=== PATIENT | male | born 1975 | race African-American/Black ===

== ENCOUNTER 2023-01-07 14:20 | Emergency (ER) | payer OTHER ==
[2023-01-07 14:36] VITALS: BP 165/89; PULSE 61; RESP 18; TEMP 98.3
--- NOTE | 2023-01-07 16:02 | ED ---
General Adult HPI - General Chief complaint: Weakness Stated complaint: weakness, numbness Source: patient Mode of arrival: ambulatory Limitations: no limitations - History of Present Illness Initial comments: 47-year-old male with no past medical history presented to the ED with a chief complaint of fatigue. Patient states when he woke up this morning he felt "drained". States since waking this morning he reports that this feeling has persisted. Additionally, notes that he has had some numbness in his left hand for the past week. 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 Denies headache, weakness, chest pain, palpitations, shortness of breath. No other complaints. - Related Data Allergies Allergy/AdvReac Type Severity Reaction Status Date / Time No Known Allergies Allergy Verified 01/07/23 14:37 Review of Systems ROS Statement: Those systems with pertinent positive or pertinent negative responses have been documented in the HPI. ROS Other: All systems not noted in ROS Statement are negative. Past Medical History Past Medical History: No Reported History History of Any Multi-Drug Resistant Organisms: None Reported Past Surgical History: Back Surgery Past Psychological History: No Psychological Hx Reported Smoking Status: Current every day smoker Past Alcohol Use History: Occasional Past Drug Use History: None Reported General Exam Limitations: no limitations General appearance: alert, in no apparent distress Head exam: Present: atraumatic, normocephalic Eye exam: Present: normal appearance, PERRL, EOMI ENT exam: Present: normal exam, mucous membranes moist, other (Midline, uvula midline.) Neck exam: Present: normal inspection Respiratory exam: Present: normal lung sounds bilaterally Cardiovascular Exam: Present: regular rate, normal rhythm GI/Abdominal exam: Present: soft (Tenderness to palpation. No rebound guarding or rigidity.) Extremities exam: Present: normal inspection, other (Strength and sensation 5 out of 5 in bilateral upper and lower extremities) Back exam: Present: normal inspection Neurological exam: Present: alert, oriented X3, CN II-XII intact (Finger nose, rapid alternating hand movements, [id number] intact.) Skin exam: Present: warm, dry Course Vital Signs 01/07/23 14:31 Temperature 98.3 F Pulse Rate 61 Respiratory 18 Rate Blood Pressure 165/89 O2 Sat by Pulse 98 Oximetry Medical Decision Making - Medical Decision Making Was pt. sent in by a medical professional or institution (Dr., PA, SENIOR MECHANICAL ENGINEER, urgent care, hospital, or care home...) When possible be specific @ -No Did you speak to anyone other than the patient for history (EMS, parent, family, police, friend...)? What history was obtained from this source @ -No Did you review nursing and triage notes (agree or disagree)? Why? @ -I reviewed and agree with nursing and triage notes Were old charts reviewed (outside hosp., previous admission, EMS record, old EKG, old radiological studies, urgent care reports/EKG's, care home records)? Report findings @ -No old charts were reviewed Differential Diagnosis (chest pain, altered mental status, abdominal pain women, abdominal pain men, vaginal bleeding, weakness, fever, dyspnea, syncope, headache, dizziness, GI bleed, back pain, seizure, CVA, palpatations, mental health, musculoskeletal)? @ -Differential Weakness: Hypoglycemia, shock, sepsis, hyponatremia, anemia, infection, NJ, ETOH, adverse medicine reaction, overdose, stroke, this is not meant to be an all-inclusive list. EKG interpreted by me (3pts min.). @ -As above X-rays interpreted by me (1pt min.). @ -None done CT interpreted by me (1pt min.). @ -None done U/S interpreted by me (1pt. min.). @ -None done What testing was considered but not performed or refused? (CT, X-rays, U/S, labs)? Why? @ -None What meds were considered but not given or refused? Why? @ -None Did you discuss the management of the patient with other professionals (professionals i.e. OLIVIA Olivas, SENIOR MECHANICAL ENGINEER, lab, RT, psych nurse, geriatric social work professor, cake washer, teacher, home lending officer, case packer and sealer)? Give summary @ -No Was smoking cessation discussed for >3mins.? @ -No Was critical care preformed (if so, how long)? @ -No Were there social determinants of health that impacted care today? How? (Homelessness, low income, unemployed, alcoholism, drug addiction, transportation, low edu. Level, literacy, decrease access to med. care, prison, rehab)? @ -No Was there de-escalation of care discussed even if they declined (Discuss DNR or withdrawal of care, Hospice)? DNR status @ -No What co-morbidities impacted this encounter? (DM, HTN, Smoking, COPD, CAD, Cancer, CVA, ARF, Chemo, Hep., AIDS, mental health diagnosis, sleep apnea, morbid obesity)? @ -None Was patient admitted / discharged? Hospital course, mention meds given and route, prescriptions, significant lab abnormalities, going to OR and other pertinent info. @ -Discharge. Labs significant for a WBC of 3.2. And transaminitis with AST at 219 ALT 212 was unremarkable. EKG showed a normal sinus rhythm without acute ST or T-wave changes. Findings likely consistent with early viral infection. Patient discharged home in stable condition. Undiagnosed new problem with uncertain prognosis? @ -No Drug Therapy requiring intensive monitoring for toxicity (Heparin, Nitro, Insulin, Cardizem)? @ -No Were any procedures done? @ -No Diagnosis/symptom? @ -Fatigue, likely viral Acute, or Chronic, or Acute on Chronic? @ -Acute Uncomplicated (without systemic symptoms) or Complicated (systemic symptoms)? @ -Uncomplicated Side effects of treatment? @ -No Exacerbation, Progression, or Severe Exacerbation? @ -No Poses a threat to life or bodily function? How? (Chest pain, USA, NJ, pneumonia, PE, COPD, DKA, ARF, appy, cholecystitis, CVA, Diverticulitis, Homicidal, Suicidal, threat to staff... and all critical care pts) @ -No - Lab Data Result diagrams: 01/07/23 16:05 01/07/23 16:05 Lab Results 01/07/23 01/07/23 01/07/23 Range/Units 16:05 16:05 16:05 WBC 3.2 L (3.8-10.6) k/uL RBC 4.66 (4.30-5.90) m/uL Hgb 15.2 (13.0-17.5) gm/dL Hct 44.3 (39.0-53.0) % MCV 95.0 (80.0-100.0) fL MCH 32.7 (25.0-35.0) pg MCHC 34.4 (31.0-37.0) g/dL RDW 13.3 (11.5-15.5) % Plt Count 94 L (150-450) k/uL MPV 7.5 Neutrophils % 78 % Lymphocytes % 11 % Monocytes % 7 % Eosinophils % 3 % Basophils % 0 % Neutrophils # 2.5 (1.3-7.7) k/uL Lymphocytes # 0.4 L (1.0-4.8) k/uL Monocytes # 0.2 (0-1.0) k/uL Eosinophils # 0.1 (0-0.7) k/uL Basophils # 0.0 (0-0.2) k/uL Manual Slide Review Performed RBC Morphology Normal Sodium 139 (137-145) mmol/L Potassium 4.3 (3.5-5.1) mmol/L Chloride 99 (98-107) mmol/L Carbon Dioxide 23 (22-30) mmol/L Anion Gap 17 mmol/L BUN 9 (9-20) mg/dL Creatinine 0.73 (0.66-1.25) mg/dL Est GFR (CKD-EPI)AfAm >90 (>60 ml/min/1.73 sqM) Est GFR (CKD-EPI)NonAf >90 (>60 ml/min/1.73 sqM) Glucose 80 (74-99) mg/dL Calcium 9.6 (8.4-10.2) mg/dL Magnesium 1.9 (1.6-2.3) mg/dL Total Bilirubin 1.2 (0.2-1.3) mg/dL AST 219 H (17-59) U/L ALT 212 H (4-49) U/L Alkaline Phosphatase 81 (38-126) U/L Total Protein 8.9 H (6.3-8.2) g/dL Albumin 5.2 H (3.5-5.0) g/dL Urine Color Yellow Urine Appearance Clear (Clear) Urine pH 6.0 (5.0-8.0) Ur Specific [place] 1.023 (1.001-1.035) Urine Protein 1+ H (Negative) Urine Glucose (UA) Negative (Negative) Urine Ketones 1+ H (Negative) Urine Blood Trace H (Negative) Urine Nitrite Negative (Negative) Urine Bilirubin Negative (Negative) Urine Urobilinogen 6.0 (<2.0) mg/dL Ur Leukocyte Esterase Negative (Negative) Urine RBC 6 H (0-5) /hpf Urine WBC 2 (0-5) /hpf Ur Squamous Epith Cells <1 (0-4) /hpf Urine Mucus Many H (None) /hpf - EKG Data EKG Comments: EKG shows sinus bradycardia at [address] or T-wave changes, ME 147, QRS 85, QT QTC 432/429. Disposition Clinical Impression: Fatigue Disposition: HOME SELF-CARE Condition: Good Additional Instructions: Please return to the Emergency Department if symptoms worsen or any other concerns. Is patient prescribed a controlled substance at d/c from ED?: No Referrals: Fly Gomez DO [Primary Care Provider] - 1-2 days Time of Disposition: 17:46
[2023-01-07 17:20] LABS: ALT 212 U/L (4-49); AST 219 U/L (17-59); African American GFR (CKD) >90 (>60 ml/min/1.73 sqM); Albumin 5.2 g/dL (3.5-5.0); Alkaline Phosphatase 81 U/L (38-126); Anion Gap 17 mmol/L; Blood Urea Nitrogen 9 mg/dL (9-20); Calcium 9.6 mg/dL (8.4-10.2); Carbon Dioxide 23 mmol/L (22-30); Chloride 99 mmol/L (98-107); Glucose 80 mg/dL (74-99); Magnesium 1.9 mg/dL (1.6-2.3); Non-African American GFR(CKD) >90 (>60 ml/min/1.73 sqM); Potassium 4.3 mmol/L (3.5-5.1); Sodium 139 mmol/L (137-145); Total Bilirubin 1.2 mg/dL (0.2-1.3); Total Protein 8.9 g/dL (6.3-8.2)
[2023-01-07 17:22] LABS: Basophils % (A) 0 %; Eosinophils # (A) 0.1 k/uL (0-0.7); Eosinophils % (A) 3 %; HCT 44.3 % (39.0-53.0); HGB 15.2 gm/dL (13.0-17.5); Lymphocytes # (A) 0.4 k/uL (1.0-4.8); Lymphocytes % (A) 11 %; MCH 32.7 pg (25.0-35.0); MCHC 34.4 g/dL (31.0-37.0); Mean Platelet Volume 7.5; Monocytes # (A) 0.2 k/uL (0-1.0); Monocytes % (A) 7 %; Neutrophils # (A) 2.5 k/uL (1.3-7.7); Neutrophils % (A) 78 %; RBC 4.66 m/uL (4.30-5.90); RDW 13.3 % (11.5-15.5); WBC 3.2 k/uL (3.8-10.6)
[2023-01-07 17:24] LABS: Appearance,Urine Clear (Clear); Bilirubin,Urine Negative (Negative); Blood,Urine Trace (Negative); Color,Urine Yellow; Glucose,Urine (UA) Negative (Negative); Ketones,Urine 1+ (Negative); Leukocyte Esterase,Urine Negative (Negative); Mucus,Urine Many /hpf; Nitrite,Urine Negative (Negative); Protein,Urine 1+ (Negative); RBC,Urine 6 /hpf (0-5); Specific Gravity,Urine 1.023 (1.001-1.035); Squamous Epithelial Cell,Urine <1 /hpf (0-4); WBC,Urine 2 /hpf (0-5)
[2023-01-07 17:35] LABS: Platelet Count 94 k/uL (150-450)
[2023-01-07 17:36] LABS: RBC Morphology Normal
== END 2023-01-07 18:02 | disposition home or self-care (01) ==
LOC: EC 14:20
DX: R53.83 Other fatigue (principal); F17.200 Nicotine dependence, unspecified, uncomplicated
CPT/HCPCS: 36415; 80053; 81001; 83735; 84443; 85025; 93005; 99285

== ENCOUNTER 2023-12-29 11:58 | Inpatient (IN) | payer OTHER ==
--- NOTE | 2023-12-29 12:52 | ED ---
General Adult HPI - General Chief complaint: Alcohol Stated complaint: Withdrawal Time Seen by Provider: 12/29/23 12:42 Source: patient, RN notes reviewed, old records reviewed Mode of arrival: ambulatory Limitations: no limitations - History of Present Illness Initial comments: 48-year-old male presenting for evaluation of alcohol withdrawal. Patient was sent in by primary care with abnormal laboratory testing. Patient uncertain of what these lab abnormalities were. He states he has been drinking heavily for the past at least 1 month. He does admit to drinking alcohol this morning and has been having withdrawal symptoms. Sent in by primary for medical detox. - Related Data Home Medications Medication Instructions Recorded Confirmed No Known Home Medications 12/29/23 12/29/23 Allergies Allergy/AdvReac Type Severity Reaction Status Date / Time No Known Allergies Allergy Verified 12/29/23 12:55 Review of Systems ROS Statement: Those systems with pertinent positive or pertinent negative responses have been documented in the HPI. ROS Other: All systems not noted in ROS Statement are negative. Past Medical History Past Medical History: No Reported History History of Any Multi-Drug Resistant Organisms: None Reported Past Surgical History: Back Surgery Past Psychological History: No Psychological Hx Reported Smoking Status: Current every day smoker Past Alcohol Use History: Daily, Heavy Past Drug Use History: None Reported General Exam Limitations: no limitations General appearance: alert, appears intoxicated, anxious Head exam: Present: atraumatic, normocephalic Eye exam: Present: normal appearance, PERRL ENT exam: Present: normal exam Neck exam: Present: normal inspection Respiratory exam: Present: normal lung sounds bilaterally. Absent: respiratory distress, wheezes Cardiovascular Exam: Present: regular rate, normal rhythm GI/Abdominal exam: Present: soft. Absent: distended, tenderness, guarding Neurological exam: Present: alert, oriented X3, CN II-XII intact. Absent: motor sensory deficit Psychiatric exam: Present: anxious Skin exam: Present: warm, dry, intact. Absent: cyanosis, diaphoretic Course Vital Signs 12/29/23 12:06 Temperature 98.4 F Pulse Rate 74 Respiratory 20 Rate Blood Pressure 153/91 O2 Sat by Pulse 99 Oximetry Medical Decision Making - Medical Decision Making Was pt. sent in by a medical professional or institution (, PA, ANDROID FRAMEWORK DEVELOPER, urgent care, hospital, or usp...) When possible be specific @ -No Did you speak to anyone other than the patient for history (EMS, parent, family, police, friend...)? What history was obtained from this source @ -No Did you review nursing and triage notes (agree or disagree)? Why? @ -I reviewed and agree with nursing and triage notes Were old charts reviewed (outside hosp., previous admission, EMS record, old EKG, old radiological studies, urgent care reports/EKG's, usp records)? Report findings @ -No old charts were reviewed Differential Diagnosis (chest pain, altered mental status, abdominal pain women, abdominal pain men, vaginal bleeding, weakness, fever, dyspnea, syncope, headache, dizziness, GI bleed, back pain, seizure, CVA, palpatations, mental health, musculoskeletal)? @ -Not applicable EKG interpreted by me (3pts min.). @ -Sinus rhythm rate of 66, CA interval 153, QRS duration 88, QTc [address] segment elevation artifact in lead III, aVF and aVL X-rays interpreted by me (1pt min.). @ -None done CT interpreted by me (1pt min.). @ -None done U/S interpreted by me (1pt. min.). @ -None done What testing was considered but not performed or refused? (CT, X-rays, U/S, labs)? Why? @ -None What meds were considered but not given or refused? Why? @ -None Did you discuss the management of the patient with other professionals (professionals i.e. , PA, ANDROID FRAMEWORK DEVELOPER, lab, RT, psych nurse, drug abuse social worker, gaming investigator, teacher, welfare officer, binder caser)? Give summary @ -No Was smoking cessation discussed for >3mins.? @ -No Was critical care preformed (if so, how long)? @ -No Were there social determinants of health that impacted care today? How? (Homelessness, low income, unemployed, alcoholism, drug addiction, transportation, low edu. Level, literacy, decrease access to med. care, prison, rehab)? @ -No Was there de-escalation of care discussed even if they declined (Discuss DNR or withdrawal of care, Hospice)? DNR status @ -No What co-morbidities impacted this encounter? (DM, HTN, Smoking, COPD, CAD, Cancer, CVA, ARF, Chemo, Hep., AIDS, mental health diagnosis, sleep apnea, morbid obesity)? @Alcohol abuse Was patient admitted / discharged? Hospital course, mention meds given and route, prescriptions, significant lab abnormalities, going to OR and other pertinent info. @ -[This is a 48-year-old male sent in from primary care for concern for alcohol withdrawal and need for detox prior to rehabilitation. Patient is intoxicated upon arrival with an alcohol of 250. He has a transaminitis otherwise normal lab testing. Patient will be observed with benzodiazepines for withdrawal. Case discussed with Dr. Cruz who will admit. Undiagnosed new problem with uncertain prognosis? @ -No Drug Therapy requiring intensive monitoring for toxicity (Heparin, Nitro, Insulin, Cardizem)? @ -No Were any procedures done? @ -No Diagnosis/symptom? @ -[Intoxication, concern for alcohol withdrawal Acute, or Chronic, or Acute on Chronic? @ -Acute Uncomplicated (without systemic symptoms) or Complicated (systemic symptoms)? @ -Default Side effects of treatment? @ -No Exacerbation, Progression, or Severe Exacerbation? @ -No Poses a threat to life or bodily function? How? (Chest pain, USA, [place], pneumonia, PE, COPD, DKA, ARF, appy, cholecystitis, CVA, Diverticulitis, Homicidal, Suicidal, threat to staff... and all critical care pts) @ -yes, seizure, delirium tremens - Lab Data Result diagrams: 12/29/23 13:22 12/29/23 13:22 Lab Results 12/29/23 12/29/23 12/29/23 Range/Units 13:22 13:22 13:22 WBC 3.1 L (3.8-10.6) k/uL RBC 4.84 (4.30-5.90) m/uL Hgb 14.8 (13.0-17.5) gm/dL Hct 44.7 (39.0-53.0) % MCV 92.4 (80.0-100.0) fL MCH 30.5 (25.0-35.0) pg MCHC 33.1 (31.0-37.0) g/dL RDW 12.7 (11.5-15.5) % Plt Count 93 L (150-450) k/uL MPV 7.5 Neutrophils % 77 % Lymphocytes % 12 % Monocytes % 9 % Eosinophils % 1 % Basophils % 0 % Neutrophils # 2.4 (1.3-7.7) k/uL Lymphocytes # 0.4 L (1.0-4.8) k/uL Monocytes # 0.3 (0-1.0) k/uL Eosinophils # 0.0 (0-0.7) k/uL Basophils # 0.0 (0-0.2) k/uL Manual Slide Review Performed RBC Morphology Normal PT 11.2 (10.0-12.5) sec INR 1.0 (<1.2) APTT 22.5 (22.0-30.0) sec Sodium 138 (137-145) mmol/L Potassium 4.0 (3.5-5.1) mmol/L Chloride 101 (98-107) mmol/L Carbon Dioxide 26 (22-30) mmol/L Anion Gap 11 mmol/L BUN 4 L (9-20) mg/dL Creatinine 0.68 (0.66-1.25) mg/dL Est GFR (CKD-EPI)AfAm >90 (>60 ml/min/1.73 sqM) Est GFR (CKD-EPI)NonAf >90 (>60 ml/min/1.73 sqM) Glucose 101 H (74-99) mg/dL Calcium 9.5 (8.4-10.2) mg/dL Magnesium 1.9 (1.6-2.3) mg/dL Total Bilirubin 0.8 (0.2-1.3) mg/dL AST 398 H (17-59) U/L ALT 318 H (4-49) U/L Alkaline Phosphatase 96 (38-126) U/L Total Protein 8.4 H (6.3-8.2) g/dL Albumin 5.0 (3.5-5.0) g/dL Serum Alcohol 246 H* mg/dL Disposition Clinical Impression: Alcoholic intoxication, Alcohol withdrawal syndrome Disposition: ADMITTED IP TO THIS HOSP Condition: Stable Is patient prescribed a controlled substance at d/c from ED?: No Referrals: Fly Gomez DO [Primary Care Provider] - 1-2 days Time of Disposition: 15:10
[2023-12-29] MEDS: SODIUM CHLORIDE 0.9% 1,000 ML IV ONE (13:40)
[2023-12-29 13:56] LABS: Basophils % (A) 0 %; Eosinophils % (A) 1 %; HCT 44.7 % (39.0-53.0); HGB 14.8 gm/dL (13.0-17.5); Lymphocytes # (A) 0.4 k/uL (1.0-4.8); Lymphocytes % (A) 12 %; MCH 30.5 pg (25.0-35.0); MCHC 33.1 g/dL (31.0-37.0); MCV 92.4 fL (80.0-100.0); Mean Platelet Volume 7.5; Monocytes # (A) 0.3 k/uL (0-1.0); Monocytes % (A) 9 %; Neutrophils # (A) 2.4 k/uL (1.3-7.7); Neutrophils % (A) 77 %; RBC 4.84 m/uL (4.30-5.90); RDW 12.7 % (11.5-15.5); WBC 3.1 k/uL (3.8-10.6)
[2023-12-29 14:06] LABS: ALT 318 U/L (4-49); AST 398 U/L (17-59); African American GFR (CKD) >90 (>60 ml/min/1.73 sqM); Alkaline Phosphatase 96 U/L (38-126); Anion Gap 11 mmol/L; Blood Urea Nitrogen 4 mg/dL (9-20); Calcium 9.5 mg/dL (8.4-10.2); Carbon Dioxide 26 mmol/L (22-30); Chloride 101 mmol/L (98-107); Glucose 101 mg/dL (74-99); Magnesium 1.9 mg/dL (1.6-2.3); Non-African American GFR(CKD) >90 (>60 ml/min/1.73 sqM); Sodium 138 mmol/L (137-145); Total Bilirubin 0.8 mg/dL (0.2-1.3); Total Protein 8.4 g/dL (6.3-8.2)
[2023-12-29 14:08] LABS: Alcohol 246 mg/dL
[2023-12-29 14:17] LABS: Partial Thromboplastin Time 22.5 sec (22.0-30.0); Prothrombin Time 11.2 sec (10.0-12.5)
[2023-12-29 14:30] LABS: Platelet Count 93 k/uL (150-450)
[2023-12-29 14:32] LABS: RBC Morphology Normal
[2023-12-29] MEDS ORDERED: LORazepam 2 MG/ML INJ IV PRN ×2 (15:07)
[2023-12-29] MEDS ORDERED: NALOXONE 0.4 MG/ML 1 ML VIAL IV PRN (15:07)
[2023-12-29] MEDS: LORazepam 2 MG/ML INJ IV PRN (19:45)
[2023-12-29 21:48] LABS: Basophils % (A) 0 %; Eosinophils # (A) 0.1 k/uL (0-0.7); Eosinophils % (A) 2 %; HCT 42.2 % (39.0-53.0); HGB 13.8 gm/dL (13.0-17.5); Lymphocytes # (A) 0.4 k/uL (1.0-4.8); Lymphocytes % (A) 15 %; MCH 29.8 pg (25.0-35.0); MCHC 32.8 g/dL (31.0-37.0); Mean Platelet Volume 7.7; Monocytes # (A) 0.2 k/uL (0-1.0); Monocytes % (A) 9 %; Neutrophils # (A) 1.8 k/uL (1.3-7.7); Neutrophils % (A) 72 %; RBC 4.63 m/uL (4.30-5.90); RDW 12.9 % (11.5-15.5); WBC 2.4 k/uL (3.8-10.6)
[2023-12-29 21:50] LABS: Platelet Count 84 k/uL (150-450)
[2023-12-29] MEDS ORDERED: LORazepam 1 MG/0.5 ML VIAL IV PRN ×2 (22:24→22:27)
[2023-12-29] MEDS: LORazepam 1 MG/0.5 ML VIAL IV PRN (22:32)
--- NOTE | 2023-12-30 09:00 | P.HPIM ---
History of Present Illness H&P Date: 12/29/23 Chief Complaint: Alcohol intoxication/pending withdrawal 48-year-old male, with history of chronic alcohol use, presenting for evaluation of alcohol withdrawal. Patient was sent in by primary care with abnormal laboratory testing. Patient uncertain of what these lab abnormalities were. He states he has been drinking heavily for the past at least 1 month. He does admit to drinking alcohol this morning and has been having withdrawal symptoms. Sent in by primary for medical detox. Blood work completed in ED reveals a WBC of 2.1, hemoglobin of 14.8 and platelet count of 93, sodium 138, potassium 4.2, BUNs/creatinine/0.68 and blood glucose of 101, AST elevated at 398, ALT of 318, blood alcohol level of 246 Review of Systems REVIEW OF SYSTEMS: CONSTITUTIONAL: No fever, no malaise, no fatigue. HEENT: No recent visual problems or hearing problems. Denied any sore throat. CARDIOVASCULAR: No chest pain, orthopnea, PND, no palpitations, no syncope. PULMONARY: No shortness of breath, no cough, no hemoptysis. GASTROINTESTINAL: No diarrhea, no nausea, no vomiting, no abdominal pain. NEUROLOGICAL: No headaches, no weakness, no numbness. HEMATOLOGICAL: Denies any bleeding or petechiae. GENITOURINARY: Denies any burning micturition, frequency, or urgency. MUSCULOSKELETAL/RHEUMATOLOGICAL: Denies any joint pain, swelling, or any muscle pain. ENDOCRINE: Denies any polyuria or polydipsia. The rest of the 14-point review of systems is negative. Past Medical History Past Medical History: No Reported History History of Any Multi-Drug Resistant Organisms: None Reported Past Surgical History: Back Surgery Past Psychological History: No Psychological Hx Reported Smoking Status: Current every day smoker Past Alcohol Use History: Daily, Heavy Past Drug Use History: None Reported Medications and Allergies Home Medications Medication Instructions Recorded Confirmed Type No Known Home Medications 12/29/23 12/29/23 History Allergies Allergy/AdvReac Type Severity Reaction Status Date / Time No Known Allergies Allergy Verified 12/29/23 12:55 Physical Exam Vitals: Vital Signs Temp Pulse Resp BP Pulse Ox 12/29/23 12:06 98.4 F 74 20 153/91 99 Intake and Output 12/29/23 12/29/23 12/29/23 06:59 14:59 22:59 Other: Weight 102.058 kg General appearance: alert, appears intoxicated, anxious Head exam: Present: atraumatic, normocephalic Eye exam: Present: normal appearance, PERRL ENT exam: Present: normal exam Neck exam: Present: normal inspection Respiratory exam: Present: normal lung sounds bilaterally. Absent: respiratory distress, wheezes Cardiovascular Exam: Present: regular rate, normal rhythm GI/Abdominal exam: Present: soft. Absent: distended, tenderness, guarding Neurological exam: Present: alert, oriented X3, CN II-XII intact. Absent: motor sensory deficit Psychiatric exam: Present: anxious Skin exam: Present: warm, dry, intact. Absent: cyanosis, diaphoretic Results CBC & Chem 7: 12/29/23 21:33 12/29/23 13:22 Labs: Abnormal Lab Results - Last 24 Hours (Table) 12/29/23 12/29/23 Range/Units 13:22 13:22 WBC 3.1 L (3.8-10.6) k/uL Plt Count 93 L (150-450) k/uL Lymphocytes # 0.4 L (1.0-4.8) k/uL BUN 4 L (9-20) mg/dL Glucose 101 H (74-99) mg/dL AST 398 H (17-59) U/L ALT 318 H (4-49) U/L Total Protein 8.4 H (6.3-8.2) g/dL Serum Alcohol 246 H* mg/dL Assessment and Plan Assessment: 1. EtOH intoxication/alcohol withdrawal --Patient reports that he was drinking this morning due to withdrawal symptoms; blood alcohol level of 246 -- Patient has been placed on IV fluids; thiamine and folic acid -- [facility] protocol with Ativan -- Patient to be transferred to [place] after detoxification 2. Transaminitis; likely related to alcohol abuse -AST/ALT elevated at 398/318; we will monitor liver function closely; further workup if it continues to deteriorate 3. Neutropenia/thrombocytopenia; likely related to alcohol abuse; we will monitor CBC; plan to consult hematology if blood counts continues to trend down 4. Elevated blood pressure; likely related to withdrawal; no history of hypertension DVT prophylaxis; SCDs CODE STATUS; full code
[2023-12-30 10:21] LABS: BUN/Creat Ratio 5.67 Ratio (12.00-20.00); Blood Urea Nitrogen 5.1 mg/dL (9.0-27.0); Calcium 9.7 mg/dL (8.7-10.3); Carbon Dioxide 23.4 mmol/L (21.6-31.8); Chloride 95 mmol/L (96-109); Glucose 95 mg/dL (70-110); Potassium 4.1 mmol/L (3.5-5.5); Sodium 135 mmol/L (135-145)
[2023-12-30 12:31] LABS: Basophils % (A) 1 %; Eosinophils # (A) 0.1 k/uL (0-0.7); Eosinophils % (A) 2 %; HCT 46.5 % (39.0-53.0); HGB 15.4 gm/dL (13.0-17.5); Lymphocytes # (A) 0.3 k/uL (1.0-4.8); Lymphocytes % (A) 12 %; MCH 30.8 pg (25.0-35.0); MCHC 33.1 g/dL (31.0-37.0); MCV 93.2 fL (80.0-100.0); Mean Platelet Volume 8.9; Monocytes # (A) 0.3 k/uL (0-1.0); Monocytes % (A) 11 %; Neutrophils # (A) 1.9 k/uL (1.3-7.7); Neutrophils % (A) 73 %; RBC 4.99 m/uL (4.30-5.90); RDW 12.8 % (11.5-15.5); WBC 2.6 k/uL (3.8-10.6)
[2023-12-30 12:34] LABS: Platelet Count 76 k/uL (150-450)
[2023-12-31 09:59] LABS: Blood Urea Nitrogen 8.1 mg/dL (9.0-27.0); Calcium 9.8 mg/dL (8.7-10.3); Carbon Dioxide 22.6 mmol/L (21.6-31.8); Chloride 99 mmol/L (96-109); Glucose 94 mg/dL (70-110); Sodium 139 mmol/L (135-145)
[2023-12-31 11:58] LABS: Basophils % (A) 0 %; Eosinophils # (A) 0.1 k/uL (0-0.7); Eosinophils % (A) 2 %; HCT 44.7 % (39.0-53.0); Lymphocytes # (A) 0.5 k/uL (1.0-4.8); Lymphocytes % (A) 12 %; MCH 30.8 pg (25.0-35.0); MCHC 33.6 g/dL (31.0-37.0); MCV 91.7 fL (80.0-100.0); Mean Platelet Volume 9.6; Monocytes # (A) 0.3 k/uL (0-1.0); Monocytes % (A) 7 %; Neutrophils # (A) 3.1 k/uL (1.3-7.7); Neutrophils % (A) 78 %; RBC 4.87 m/uL (4.30-5.90); RDW 13.1 % (11.5-15.5)
[2023-12-31 12:06] LABS: Platelet Count 74 k/uL (150-450)
--- NOTE | 2023-12-31 16:20 | P.PN ---
Subjective Progress Note Date: 12/30/23 48-year-old male, with history of chronic alcohol use, presenting for evaluation of alcohol withdrawal. Patient was sent in by primary care with abnormal laboratory testing. Patient uncertain of what these lab abnormalities were. He states he has been drinking heavily for the past at least 1 month. He does admit to drinking alcohol this morning and has been having withdrawal symptoms. Sent in by primary for medical detox. Blood work completed in ED reveals a WBC of 2.1, hemoglobin of 14.8 and platelet count of 93, sodium 138, potassium 4.2, BUNs/creatinine/0.68 and blood glucose of 101, AST elevated at 398, ALT of 318, blood alcohol level of 246 Objective - Vital Signs Vital signs: Vital Signs Temp 97.4 F L 12/30/23 07:28 Pulse 56 L 12/30/23 07:28 Resp 17 12/30/23 07:28 BP 179/89 12/30/23 07:28 Pulse Ox 98 12/30/23 07:28 FiO2 Intake & Output 12/29/23 12/30/23 12/30/23 18:59 06:59 18:59 Weight 102.058 kg Other: Voiding Method Toilet # Voids 2 - Exam General appearance: alert, appears intoxicated, anxious Head exam: Present: atraumatic, normocephalic Eye exam: Present: normal appearance, PERRL ENT exam: Present: normal exam Neck exam: Present: normal inspection Respiratory exam: Present: normal lung sounds bilaterally. Absent: respiratory distress, wheezes Cardiovascular Exam: Present: regular rate, normal rhythm GI/Abdominal exam: Present: soft. Absent: distended, tenderness, guarding Neurological exam: Present: alert, oriented X3, CN II-XII intact. Absent: motor sensory deficit Psychiatric exam: Present: anxious Skin exam: Present: warm, dry, intact. Absent: cyanosis, diaphoretic - Labs CBC & Chem 7: 12/31/23 04:42 12/31/23 04:42 Labs: Abnormal Lab Results - Last 24 Hours (Table) 12/29/23 12/29/23 12/29/23 Range/Units 13:22 13:22 21:33 WBC 3.1 L 2.4 L (3.8-10.6) k/uL Plt Count 93 L 84 L (150-450) k/uL Lymphocytes # 0.4 L 0.4 L (1.0-4.8) k/uL BUN 4 L (9-20) mg/dL Glucose 101 H (74-99) mg/dL AST 398 H (17-59) U/L ALT 318 H (4-49) U/L Total Protein 8.4 H (6.3-8.2) g/dL Serum Alcohol 246 H* mg/dL Assessment and Plan Assessment: 1. EtOH intoxication/alcohol withdrawal --Patient reports that he was drinking this morning due to withdrawal symptoms; blood alcohol level of 246 -- Patient has been placed on IV fluids; thiamine and folic acid -- [facility] protocol with Ativan -- Patient to be transferred to [place] after detoxification 2. Transaminitis; likely related to alcohol abuse -AST/ALT elevated at 398/318; we will monitor liver function closely; further workup if it continues to deteriorate 3. Neutropenia/thrombocytopenia; likely related to alcohol abuse; we will monitor CBC; plan to consult hematology if blood counts continues to trend down 4. Elevated blood pressure; likely related to withdrawal; no history of hypertension DVT prophylaxis; SCDs CODE STATUS; full code
--- NOTE | 2023-12-31 16:27 | P.PN ---
Subjective Progress Note Date: 12/31/23 48-year-old male, with history of chronic alcohol use, presenting for evaluation of alcohol withdrawal. Patient was sent in by primary care with abnormal laboratory testing. Patient uncertain of what these lab abnormalities were. He states he has been drinking heavily for the past at least 1 month. He does admit to drinking alcohol this morning and has been having withdrawal symptoms. Sent in by primary for medical detox. Blood work completed in ED reveals a WBC of 2.1, hemoglobin of 14.8 and platelet count of 93, sodium 138, potassium 4.2, BUNs/creatinine/0.68 and blood glucose of 101, AST elevated at 398, ALT of 318, blood alcohol level of 246 12/31/2023 Patient is evaluated in room at bedside; observe reports starting to feel more shaky today; patient reports that he has been accepted to [facility] possibly on Monday Vital signs are reviewed and reveal temperature of 98.3, pulse 72, respirations 17 and blood pressure 171/91 Blood work reveals WBC of 4.2, hemoglobin of 15 and hematocrit of 44.7 with platelet count of 74, sodium 139, potassium 4.0, BUNs/creatinine of 8.1/0.9 --Patient remains on CIWA protocol with IV Ativan; blood alcohol level of 246 on 12/29/2023; with patient is getting more tremulous, likely starting withdrawal phase -- We will continue with current management at this time Objective - Vital Signs Vital signs: Vital Signs Temp 98.3 F 12/31/23 06:56 Pulse 52 L 12/31/23 06:56 Resp 17 12/31/23 06:56 BP 171/91 12/31/23 06:56 Pulse Ox 99 12/31/23 06:56 FiO2 Intake & Output 12/30/23 12/31/23 12/31/23 18:59 06:59 18:59 Other: # Voids 2 3 - Exam General appearance: alert, appears intoxicated, anxious Head exam: Present: atraumatic, normocephalic Eye exam: Present: normal appearance, PERRL ENT exam: Present: normal exam Neck exam: Present: normal inspection Respiratory exam: Present: normal lung sounds bilaterally. Absent: respiratory distress, wheezes Cardiovascular Exam: Present: regular rate, normal rhythm GI/Abdominal exam: Present: soft. Absent: distended, tenderness, guarding Neurological exam: Present: alert, oriented X3, CN II-XII intact. Absent: motor sensory deficit Psychiatric exam: Present: anxious Skin exam: Present: warm, dry, intact. Absent: cyanosis, diaphoretic - Labs CBC & Chem 7: 12/31/23 04:42 12/31/23 04:42 Labs: Abnormal Lab Results - Last 24 Hours (Table) 12/30/23 12/31/23 Range/Units 07:16 04:42 WBC 2.6 L (3.8-10.6) k/uL Plt Count 76 L (150-450) k/uL Lymphocytes # 0.3 L (1.0-4.8) k/uL Anion Gap 17.40 H (4.00-12.00) mmol/L BUN 8.1 L (9.0-27.0) mg/dL BUN/Creatinine Ratio 9.00 L (12.00-20.00) Ratio Assessment and Plan Assessment: 1. EtOH intoxication/alcohol withdrawal --Patient reports that he was drinking this morning due to withdrawal symptoms; blood alcohol level of 246 -- Patient has been placed on IV fluids; thiamine and folic acid -- [facility] protocol with Ativan -- Patient to be transferred to [facility] [facility] after detoxification 2. Transaminitis; likely related to alcohol abuse -AST/ALT elevated at 398/318; we will monitor liver function closely; further workup if it continues to deteriorate 3. Neutropenia/thrombocytopenia; likely related to alcohol abuse; we will monitor CBC; plan to consult hematology if blood counts continues to trend down 4. Elevated blood pressure; likely related to withdrawal; no history of hypertension DVT prophylaxis; SCDs CODE STATUS; full code
[2024-01-01 07:24] VITALS: BP 167/91; PULSE 65; RESP 16; TEMP 98.2
[2024-01-01 09:45] LABS: BUN/Creat Ratio 11.62 Ratio (12.00-20.00); Blood Urea Nitrogen 9.3 mg/dL (9.0-27.0); Calcium 9.6 mg/dL (8.7-10.3); Carbon Dioxide 21.4 mmol/L (21.6-31.8); Chloride 99 mmol/L (96-109); Glucose 92 mg/dL (70-110); Potassium 3.8 mmol/L (3.5-5.5); Sodium 135 mmol/L (135-145)
[2024-01-01 10:46] LABS: Basophils # (A) 0.01 X 10*3/uL (0.00-0.10); Basophils % (A) 0.3 %; Eosinophils # (A) 0.05 X 10*3/uL (0.04-0.35); Eosinophils % (A) 1.3 %; HCT 42.8 % (39.6-50.0); HGB 14.5 g/dL (13.0-17.0); Immature Platelet Fraction 6.3 % (1.1-6.1); MCH 30.9 pg (27.0-32.0); MCHC 33.9 g/dL (32.0-37.0); MCV 91.1 FL (80.0-97.0); Mean Platelet Volume 10.4 FL (9.5-12.2); Monocytes # (A) 0.36 X 10*3/uL (0.20-1.00); Monocytes % (A) 9.4 %; NRBC Per 100 WBC 0 X 10*3/uL (0.00-0.01); Neutrophils # (A) 2.91 X 10*3/uL (1.80-7.70); Neutrophils % (A) 75.7 %; Platelet Count 63 X 10*3/uL (140-440); RDW 12.6 % (11.5-14.5); WBC 3.84 X 10*3/uL (4.50-10.00)
== END 2024-01-01 14:17 | disposition home or self-care (01) | DRG 897 ==
LOC: EC 11:58 → 4SSUR 15:08
PROVIDERS: ADMIT Hospitalist; ATTEND Hospitalist
DX: F10.129 Alcohol abuse with intoxication, unspecified (principal); Y90.8 Blood alcohol level of 240 mg/100 ml or more; F10.131 Alcohol abuse with withdrawal delirium; D69.59 Other secondary thrombocytopenia; D70.9 Neutropenia, unspecified; F17.200 Nicotine dependence, unspecified, uncomplicated; R74.01 Elevation of levels of liver transaminase levels; R03.0 Elevated blood-pressure reading, without diagnosis of hypertension; Z28.310 Unvaccinated for COVID-19; Z28.21 Immunization not carried out because of patient refusal
CPT/HCPCS: 36415; 80048; 80053; 80320; 83735; 85025; 85610; 85730; 93005; 96361; 96374; 99285

== ENCOUNTER → 2024-03-15 | Outpatient (CLI) | payer OTHER | END | disposition home or self-care (01) | LOC: LABPRL 12:00 | PROVIDERS: ATTEND Internal Medicine Gastroenterology | DX: Z53.9 Procedure and treatment not carried out, unspecified reason (principal) ==

== ENCOUNTER → 2024-03-15 | Outpatient (CLI) | payer OTHER | END | disposition home or self-care (01) | LOC: LABWHC1 16:06 | DX: Z53.9 Procedure and treatment not carried out, unspecified reason (principal) ==

== ENCOUNTER → 2024-04-17 | Outpatient (CLI) | payer OTHER ==
[2024-04-18 03:09] LABS: Hepatitis B Surface Antigen Nonreactive (Nonreactive)
[2024-04-18 03:40] LABS: ALT 30 U/L (10-49); AST 38 U/L (14-35); Albumin 4.3 g/dL (3.8-4.9); Albumin/Globulin Ratio 1.43 Ratio (1.60-3.17); Alkaline Phosphatase 74 U/L (41-126); BUN/Creat Ratio 11.22 Ratio (12.00-20.00); Blood Urea Nitrogen 10.1 mg/dL (9.0-27.0); Calcium 9.6 mg/dL (8.7-10.3); Carbon Dioxide 22.6 mmol/L (21.6-31.8); Chloride 104 mmol/L (96-109); Glucose 102 mg/dL (70-110); Potassium 3.7 mmol/L (3.5-5.5); Sodium 139 mmol/L (135-145); Total Bilirubin 0.2 mg/dL (0.3-1.2); Total Protein 7.3 g/dL (6.2-8.2)
[2024-04-18 15:23] LABS: Hepatitis C IgG Antibody Nonreactive (Nonreactive)
== END | disposition home or self-care (01) ==
LOC: LABWHC1 16:05
PROVIDERS: ATTEND Internal Medicine Gastroenterology
DX: R74.01 Elevation of levels of liver transaminase levels (principal)
CPT/HCPCS: 36415; 80053; 86803; 87340

== ENCOUNTER → 2024-11-06 | Outpatient (CLI) | payer OTHER ==
[2024-11-06 11:36] LABS: Appearance,BF Cloudy; Color,BF Yellow; RBC, Body Fluid 522 /uL
[2024-11-06 11:37] LABS: Nucleated Cells, Body Fluid 9300 /uL
[2024-11-06 11:38] LABS: Mononuclear WBC,Body Fluid 17 %; Polynuclear WBC,Body Fluid 83 %; Total Cells Counted,Body Fluid 100
[2024-11-06 18:34] LABS: Synovial Fld Crystals None Seen (None Seen)
== END | disposition home or self-care (01) ==
LOC: LABWHC1 09:07
PROVIDERS: ATTEND Orthopaedic Surgery
DX: M25.561 Pain in right knee (principal)
CPT/HCPCS: 87070; 87205; 89050; 89060